=== PATIENT | male | born 1970 | race Caucasian/White ===

== ENCOUNTER 2021-05-31 10:27 | Outpatient (CLI) | payer OTHER, SELFPAY ==
--- NOTE | 2021-05-31 06:00 | DI.RAD_ITS ---
Exam(s) XR PAIN CLINIC LUMBAR SP 2V EXAM: XR PAIN CLINIC LUMBAR SP 2V CLINICAL HISTORY: DX: Lumbar Radiculopathy. TECHNIQUE: Fluoroscopy was provided for the referring physician for guidance with performing injecti on procedure. COMPARISON: No exams were available for comparison FINDINGS: Please see procedure note for details. Fluoro time 27.4 seconds RADIATION DOSE DELIVERED: Fredr=6.38 mGy
[2021-05-31 10:53] VITALS: PULSE 66; RESP 14; TEMP 36.7; O2SAT 95
--- NOTE | 2021-05-31 11:03 | PDOC.PAIN ---
Pain Clinic Procedure Note Procedure Note Procedure Note: Lumbar Epidural Steroid Injection Procedure Note Pre-operative diagnosis: lumbar radiculopathy Post-operative diagnosis: same as above COMMENTS:patient had back injections by Dr Bryan in [place] as well as a physician provider in [place] in the past. He has back pain as well as radiating bilateral leg pain. he was evaluated by Ms Nelia Bales APRN and referred for a course of LESI for both back and leg symtpomatic relief. MRI L spine report reviewed. Aroldo Starks has been referred to the [facility] for lumbar epidural steroid injection. The patient was greeted by the nurse who verified patients name and . Patient was then taken to the fluoroscopy suite. The patient was interviewed and the medial record reviewed. There were no medical, pharmacologic, radiographic, or other structural contraindications to attempting fluoroscopically guided lumbar epidural steroid injection. Risks and expected side effects as well as potential benefits of the procedure were reviewed and voiced concerns expressed. The patient consent form was signed and witnessed. Standard patient time-out procedure was performed. The patient was placed in the prone position on the fluoroscopy table and automated blood pressure cuff and pulse oximeter applied. The skin entry point for entering/approaching the epidural space by a L5-S1 and marked. Following thorough chlorhexadine preparation of the skin and draping and 1% lidocaine infiltration of the skin entry point and subcutaneous tissues, a 18 gauge Touhy needle was placed under fluoroscopic guidance and with loss of resistance technique into the epidural space. Needle tip placement and depth were aided and confirmed by fluoroscopy. There was no paresthesia or return of blood or CSF through the needle. 1 cc's of Omnipaque 240 was injected with clear epidural spread confirmed with fluoroscopy. 80mg depomedrol was injected. THis is followed by 1cc of preservative free normal saline and 1cc of preservative free 1% lidocaine. There was not any unusual discomfort expressed by Aroldo Starks. Patient's vital signs were stable throughout the procedure and were as recorded in nursing records. Follow up plans and appointments were discussed with patient. Post procedure instruction was given as documented in nursing records and having met discharge criteria and was discharged from the [facility]. COMMENTS: If this procedure is helpful, it can be completed up to 3 times per 12 months. Genesis Chino MD Pain Management
[2021-05-31] MEDS: Omnipaque 240 MG/ML 50 ML BTL IJ (11:24)
[2021-05-31] MEDS: methylPREDNISolone ACETATE 80 MG/ML VIAL IJ (11:24)
[2021-05-31 11:25] VITALS: BP 143/91; PULSE 74; RESP 16; O2SAT 96
== END 2021-05-31 10:28 | disposition home or self-care (01) ==
PROVIDERS: PCP Internal Medicine; Visit Provider Internal Medicine
DX: M54.16 Radiculopathy, lumbar region (principal)
CPT/HCPCS: 62323; 72100; J1040; Q9967

== ENCOUNTER 2021-09-15 09:23 | Outpatient (CLI) | payer OTHER, SELFPAY ==
--- NOTE | 2021-09-15 06:00 | DI.RAD_ITS ---
Exam(s) XR PAIN CLINIC LUMBAR SP 2V EXAM: XR PAIN CLINIC LUMBAR SP 2V CLINICAL HISTORY: Dx: Lumbar Radiculopathy TECHNIQUE: 2D and realtime digital imaging was performed. Radiologist not present. CONTRAST MATERIAL: None. COMPARISON: No exams were available for comparison FINDINGS: Fluoroscopy was provided for pain management therapy. Please refer to procedure report or details. Total fluoroscopy time 23.3 seconds Cumulative dose: Ka,r=4.96 mGy IMPRESSION: RADIATION DOSE DELIVERED:
[2021-09-15 09:31] VITALS: BP 132/77; PULSE 71; RESP 18; O2SAT 98
[2021-09-15] MEDS: Omnipaque 240 MG/ML 50 ML BTL IJ (10:06)
[2021-09-15] MEDS: Dexamethasone Sod. Phos./Pres-Free 10 MG/ML VIAL IJ (10:06)
--- NOTE | 2021-09-15 10:08 | PDOC.PAIN ---
Pain Clinic Procedure Note Procedure Note Procedure Note: LUMBAR / SACRAL TRANSFORAMINAL INJECTION Aroldo Starks has been referred to the [facility] for a transforaminal nerve root block and steroid injection. COMMENTS: Pre-procedure pain VAS = 3/10. DX: Lumbosacral radiculopathy Patient was interviewed and the medical record reviewed. There were no medical, pharmacologic, radiographic or other structural contraindications to attempting fluoroscopically guided transforaminal nerve root block and epidural steroid injection. Risks and expected side effects as well as potential benefit of the procedure were reviewed and voiced concerns addressed. The printed consent form was signed and witnessed. Standard time-out procedure was performed. Patient was placed in the prone position on the fluoroscopy table and automated blood pressure cuff and pulse oximeter applied. Fluoroscopy was utilized to identify the left L4 neural foramen between L4 and L5. A skin mihaela was made for the needle insertion site. A Chlorhexadine prep was carried out, and sterile drapes were applied. Local anesthesia was achieved in the skin and subcutaneous tissues. A 22 gauge curved tip spinal needle was then inserted, advanced with fluoroscopic guidance into the neural foramen, confirmed on the lateral view. After negative aspiration, 2 ml of Omnipaque 240 was injected confirming position in A/P and lateral views. This showed a good spread of dye transforaminally into the epidural space. There was no vascular update with contrast injection under continuous fluoroscopy. 15 mg of Dexamethasone was injected, followed by 0.5 ml of 1% Xylocaine flush for the nerve root block, as well. There was no unusual discomfort expressed.The needle was withdrawn. The patient tolerated the procedure well. A Band-Aid was applied. Vital signs were stable throughout the procedure and were as recorded in nursing records. If given, dosages of intravenous drugs for anxiolysis and analgesia were documented in nursing records. Follow up plans and appointments were discussed. Post procedure instruction was given as documented in nursing records and patient was discharged in the care of an identified certified driver examiner. COMMENTS: Post-procedure pain VAS = 0/10 Lb Ayala DO, MPH Pain Management CC: Montserrat Hannah
[2021-09-15 10:11] VITALS: BP 136/89; PULSE 74; RESP 17; O2SAT 97
== END 2021-09-15 09:24 | disposition home or self-care (01) ==
LOC: PC 09:23
PROVIDERS: PCP Internal Medicine; Visit Provider Preventive Medicine Occupational Medicine
DX: M54.17 Radiculopathy, lumbosacral region (principal)
CPT/HCPCS: 64483; 72100; Q9967